=== PATIENT | female | born 1985 | race Caucasian/White ===

== ENCOUNTER 2017-08-09 01:23 | Emergency (ER) | payer MEDICAID ==
[~2017-08-09] VITALS: Ht 160 cm; Wt 89.7 kg
[~2017-08-09 01:23] MED LIST: AMOX1TAB10 PO; OFLO5DRO7 LEFT EAR
[2017-08-09 01:28] VITALS: Ht 160 cm; Wt 89.7 kg
[2017-08-09 04:35] LABS: URINE BLOOD (Dip) POC 3+ (NEGATIVE)
[2017-08-09] MEDS ORDERED: NORG1TAB14 PO (05:11)
[2017-08-09] MEDS ORDERED: HYDR-902 PO (05:11)
--- NOTE | 2017-08-09 06:21 | RADRPT ---
PROCEDURE: Pelvic ultrasound. CLINICAL INDICATION: Vaginal bleeding. TECHNIQUE: Multiple sonographic images of the pelvis were obtained utilizing a transabdominal and endovaginal technique. The images were reviewed on a PACS workstation. COMPARISON: None. FINDINGS: The uterus is visualized and measures 6.6 x 3.7 x 5.5 cm. No abnormal uterine mass is identified. T he endometrial echo complex is homogeneous and measures 10.9 mm. There is no evidence for free fluid. The right ovary has a normal echotexture and measures 2.9 x 2. 1 x 2.0 cm. The left ovary has a normal echotexture and measures 3.2 x 2.2 x 1.9 cm. There is norm al flow to both ovaries. No adnexal masses are identified. IMPRESSION: Unremarkable pelvic ultrasound. .Isaac Craig MD, MD Date Time Electronically viewed and signed by .Isaac Craig MD, MD on 08/09/2017 06:20 .T/
--- NOTE | 2017-08-13 18:52 | ERD ---
ER Documentation Chief Complaint Chief Complaint pelvic pain x 4 days HPI This 31-year-old female who is having a history of dysfunctional uterine bleeding over the past few months with heavy cycles that are irregular. She is having some cramps and occasional clots no dizziness syncope no near syncope. No back pain. Patient says she has been bleeding for 8 days at this point. No shortness of breath no abdominal pain other than some low pelvic cramps at times ROS All systems reviewed and are negative except as per history of present illness. Medications Home Meds Active Scripts Hydrocodone/Acetaminophen ([place] 10-325 Tablet) 1 Each Tablet, 1 TAB PO Q6H Y for PAIN, #7 TAB Prov:RUTHY HUERTAS DO 08/09/17 Norgestimate-Ethinyl Estradiol (Sprintec 28 Day Tablet) 1 Each Tablet, 2 EACH PO BID, #2 TAB 2 po BID x 3 days, then 1 po qd. Skip last week of pills and restart new pack at 1 po QD Prov:RUTHY HUERTAS DO 08/09/17 Ofloxacin* (Ofloxacin*) 0.3%-10 Ml Otic Drops, 10 DROP LEFT EAR BID, #1 EA Prov:ALESSANDRO CHANG PA-C 03/24/16 Amox Tr/Potassium Clavulanate (Amox Tr-K Clv 875-125 Mg Tab) 1 Tab Tablet, 1 TAB PO BID, #20 TAB Prov:ALESSANDRO CHANG PA-C 03/24/16 Allergies Allergies: Coded Allergies: No Known Allergy (Unverified , 08/09/17) PMhx/Soc Medical and Surgical Hx: pt denies Medical Hx, pt denies Surgical Hx History of Surgery: No Anesthesia Reaction: No Hx Neurological Disorder: No Hx Respiratory Disorders: No Hx Cardiac Disorders: No Hx Psychiatric Problems: No Hx Miscellaneous Medical Probl: No Hx Alcohol Use: No Hx Substance Use: No Hx Tobacco Use: No Smoking Status: Never smoker FmHx Family History: No coronary disease Physical Exam Physical Exam Const: Well-developed, well-nourished Head: Atraumatic, normocephalic Eyes: Normal Conjunctiva, PERRLA, EOMI, normal sclera, no nystagmus ENT: Normal External Ears, Nose and Mouth, moist mucus membranes. Neck: Full range of motion. No meningismus, no lymphadenopathy. Resp: Clear to auscultation bilaterally, no wheezing, rhonchi, rales Cardio: Regular rate and rhythm, no murmurs, S1 S2 present Abd: Soft, diffuse mild pelvic tenderness, non distended. Normal bowel sounds, no guarding or rebound, no pulsitile abdominal masses or bruits Skin: No petechiae or rashes, no ecchymosis , no maculopapular rash Back: No midline or flank tenderness Ext: No cyanosis, or edema, FROM x 4, normal inspection, neurovascularly intact x 4 Neur: Awake and alert, STR 5/5 x 4, sensation intact x 4, no focal findings, cerebellum intact Psych: Normal Mood and Affect Results 24 hrs Laboratory Tests Test 08/09/17 04:33 Bedside Urine pH (LAB) 5.5 Bedside Urine Protein (LAB) 3+ Bedside Urine Glucose (UA) Negative Bedside Urine Ketones (LAB) 1+ Bedside Urine Blood 3+ Bedside Urine Nitrite (LAB) Negative Bedside Urine Leukocyte Esterase (L 3+ Procedures/MDM PROCEDURE: Pelvic ultrasound. CLINICAL INDICATION: Vaginal bleeding. TECHNIQUE: Multiple sonographic images of the pelvis were obtained utilizing a transabdominal and endovaginal technique. The images were reviewed on a PACS workstation. COMPARISON: None. FINDINGS: The uterus is visualized and measures 6.6 x 3.7 x 5.5 cm. No abnormal uterine mass is identified. The endometrial echo complex is homogeneous and measures 10.9 mm. There is no evidence for free fluid. The right ovary has a normal echotexture and measures 2.9 x 2.1 x 2.0 cm. The left ovary has a normal echotexture and measures 3.2 x 2.2 x 1.9 cm. There is normal flow to both ovaries. No adnexal masses are identified. IMPRESSION: Unremarkable pelvic ultrasound. .Isaac Craig MD, MD Date Time Electronically viewed and signed by .Isaac Craig MD, MD on 08/09/2017 06:20 .T/ CC: RUTHY HUERTAS DO Patient has no ovarian cyst or fibroid. 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 I will provide her with some Sprintec control Departure Diagnosis: Primary Impression: Dysfunctional uterine bleeding Condition: Stable Patient Instructions: Dysfunctional Uterine Bleeding Referrals: DOCTOR,NOT ON STAFF (PCP) RUTHY HUERTAS DO Aug 13, 2017 18:52
== END 2017-08-09 06:41 | disposition home or self-care (01) ==
LOC: FTE 01:23
DX: N93.8 Other specified abnormal uterine and vaginal bleeding (principal)
CPT/HCPCS: 76830; 76856; 81003; Z7502